=== PATIENT | female | born 1985 | race African-American/Black ===

== ENCOUNTER 2023-02-14 12:06 | Emergency (ER) | payer OTHER ==
[~2023-02-14] VITALS: Ht 162.6 cm; Wt 64.0 kg
[2023-02-14] MEDS ORDERED: CYCLOBENZAPRINE5 MG PO (13:11)
[2023-02-14] MEDS ORDERED: MELOXICAM7.5 MG PO (13:11)
== END 2023-02-14 13:41 | disposition home or self-care (01) ==
LOC: FSED 12:22
DX: S43.492A Other sprain of left shoulder joint, initial encounter (principal); M54.2 Cervicalgia; V47.5XXA Car driver injured in collision with fixed or stationary object in traffic accident, initial encounter; Y92.488 Other paved roadways as the place of occurrence of the external cause
CPT/HCPCS: 99283